=== PATIENT | female | born 1960 | race Caucasian/White ===

== ENCOUNTER 2017-02-22 14:41 | Observation (INO) ==
[2017-02-22] MEDS ORDERED: DiltiaZEM 25 MG/5 ML INJECTION IVP ONE ×2 (15:25→16:10)
[2017-02-22] MEDS ORDERED: NS 1,000 ML IV ONE (15:29)
--- NOTE | 2017-02-22 15:33 | Emergency Department Report ---
Cardiac General HPI - General Chief Complaint: Chest Pain Stated Complaint: irr heartbeat Time Seen by Provider: 02/22/17 15:14 Source: patient Mode of arrival: ambulatory Limitations: no limitations - History of Present Illness HPI narrative: Krystin is a 56 year old female who developed heart fluttering sensation about an hour prior to arrival while walking on the [place] [employer] to her office. Last evening she did also feel some strange sensation in her chest but denies it feeling like pain. Denies soa. No prior hx of documented dysrhythmias. Hx HTN. Occurred At: work Onset (ago): hour(s) (1) Activites at Onset: activity Nitro Today: no nitro taken today - Related Data Home Medications Medication Instructions Recorded Confirmed Bisoprolol Fumarate 5 mg PO DAILY #0 08/19/11 02/22/17 Estradiol [Vivelle-Dot] 1 patch TOP WEEKLY #24 08/22/14 02/22/17 Acetaminophen [Acetaminophen Extra 1,000 mg PO Q8H PRN 02/22/17 02/22/17 Strength] HydroCHLOROthiazide [Hydrodiuril] 25 mg PO WB 02/22/17 02/22/17 Ibuprofen [Motrin] 400 mg PO Q4H PRN 02/22/17 02/22/17 Allergies Allergy/AdvReac Type Severity Reaction Status Date / Time No Known Drug Allergies Allergy Unknown Verified 02/22/17 15:11 Review of Systems All systems: reviewed and negative except as stated Cardiovascular: Reports: palpitations. Denies: chest pain Respiratory: Denies: cough Gastrointestinal: Denies: abdominal pain, nausea, vomiting Psychiatric: Denies: anxiety PFSH Patient Stated Medical History Migraine Yes Hypertension Yes Gastroesophageal Reflux Yes Disease - Social History Smoking status: Never smoker Substance use type: does not use Current occupational status: employed Current occupation: [employer] Physical Exam - Limitations Limitations: no limitations - Head Head exam: atraumatic, normocephalic - Eye Eye exam: Present: normal appearance, PERRL - ENT ENT exam: Present: normal exam, normal oropharynx, mucous membranes moist - Neck Neck exam: Present: normal inspection, full ROM, trachea midline - Chest Chest inspection: Present: normal inspection, symmetric chest wall rise - Respiratory Respiratory exam: Present: normal lung sounds bilaterally, respiratory distress - Cardiovascular Cardiovascular exam: Present: tachycardia, irregular rhythm - Abdominal Exam Abdominal exam: Present: soft. Absent: distention, tenderness - Extremities Exam Extremities exam: Present: normal inspection, full ROM - Skin Skin exam: Present: warm, dry, intact - Neurological Exam Neurological exam: Present: alert, oriented X3 - Psychiatric Psychiatric exam: Present: normal affect, normal mood Course Course Narrative: Doreen Wesley JAC notified of patient for cardiology consultation - Consultations Consultation #1: Amy Time: 17:55 (in to see patient in ER) Vital Signs Temperature 98.4 F 02/22/17 14:45 Pulse Rate 115 H 02/22/17 14:45 Respiratory Rate 18 02/22/17 14:45 Blood Pressure 190/103 H 02/22/17 14:45 Pulse Oximetry 99 02/22/17 14:45 Temperature 98.4 F 02/22/17 14:45 Pulse Rate 105 H 02/22/17 17:30 Respiratory Rate 18 02/22/17 17:15 Blood Pressure 154/68 H 02/22/17 17:30 Pulse Oximetry 97 02/22/17 17:30 Cardiac General - MDM Narrative Medical decision making narrative: Adenosine 6 mg given in ED ordered by Amy with his presence at bedside. Underlying rhythm evaluated and seems to be sinus tachycardia with frequent PACs. Rate erratic and remains tachycardic after adenosine wore off. Admitting patient for antiarrhythmic therapy - Differential Diagnosis Differential diagnosis: Likely: sinus tachycardia (with freq PACs) - Lab Data Attestation: I reviewed the patient's lab results. Result diagrams: 02/22/17 15:41 02/22/17 15:41 Lab Results 02/22/17 02/22/17 Range/Units 15:41 15:41 WBC 9.0 (4.5-11.0) T/MM3 RBC 5.06 (4.00-5.20) M/MM3 Hgb 14.8 (12-16) GM/DL Hct 44.2 (36-46) % MCV 87.4 (80-100) UM3 MCH 29.2 (26-34) UUG MCHC 33.5 (31-37) GM/DL RDW Std Deviation 40.3 (36.9-50.2) FL Plt Count 356 (130-400) T/MM3 MPV 9.6 (9.4-12.4) UM3 Immature Gran % (Auto) 0.1 (0.0-0.5) % Neut % (Auto) 70.6 H (33-66) % Lymph % (Auto) 17.7 L (23-45) % [place] % (Auto) 7.9 (0-9.0) % Eos % (Auto) 3.1 (0-4) % Baso % (Auto) 0.6 (0-2) % Neut # 6.4 (1.8-7.7) T/MM3 Lymph # 1.6 (1-4.8) T/MM3 [place] # 0.7 (0-0.8) T/MM3 Eos # 0.3 (0-0.5) T/MM3 Baso # 0.1 (0-0.2) T/MM3 Abs Immat Gran (auto) 0.01 (0.00-0.03) T/MM3 Turbidity < 20 (0-20) Sodium 140 (134-144) MEQ/L Potassium 3.9 (3.6-5) MEQ/L Chloride 100 (98-107) MEQ/L Carbon Dioxide 29 (22-30) MEQ/L Anion Gap 11 (5-15) MEQ/L BUN 13.0 (7-17) MG/DL Creatinine 0.8 (0.7-1.2) MG/DL GFR Calculation 74 BUN/Creatinine Ratio 16 (6-26) RATIO Glucose 126 H (65-110) MG/DL Calculated Osmolality 271 (261-280) MOSM/KG Calcium 9.9 (8.4-10.2) MG/DL Magnesium 2.0 (1.6-2.3) MG/DL Icterus Index < 2 (0-7) Troponin I < 0.012 (0-0.12) ng/ml TSH 3.06 (0.47-4.68) MIU/L Specimen Hemolysis 90 H (0-25) Critical Care Time Critical Care Time: Yes Total Critical Care Time: 20 Attestation: Critical care time for evaluation on monitor with diltiazen administration and adenosine Disposition Clinical Impression: Tachycardia Disposition: 02 To [facility] [place] Acute Care Prescriptions: No Action Bisoprolol Fumarate 5 mg PO DAILY #0 Ibuprofen [Motrin] 400 mg PO Q4H PRN PRN Reason: Pain Estradiol [Vivelle-Dot] 1 patch TOP WEEKLY #24 Acetaminophen [Acetaminophen Extra Strength] 1,000 mg PO Q8H PRN PRN Reason: Pain HydroCHLOROthiazide [Hydrodiuril] 25 mg PO WB - Seen By: midlevel Addendum entered and electronically signed by Dory Milan APRN 02/22/17 18: 21:
[2017-02-22] MEDS: SALINE FLUSH 10ml SYRINGE IV PRN ×3 (15:55→18:00)
[2017-02-22] MEDS ORDERED: ADENOSINE 6mg/2ml INJECTION IVP ONE (17:54)
--- NOTE | 2017-02-22 18:22 | Cardiology History & Physical ---
History of Present Illness Chief complaint: irregular heart beat HPI: Krystin is a 56 year old female who is seen by Dr. Reyes in the ED this evening after she developed heart fluttering sensation about an hour prior to arrival to the ED today while walking on the [email or web address] [email or web address] to her office. Last evening she did also feel some strange sensation in her chest but denies it feeling like pain. Denies soa. No prior hx of documented dysrhythmias. Hx HTN. EKG demonstrates Sinus Tachycardia with frequent PVCs. On telemetry it is difficult to diferentiate between ST with PACs verses A Flutter. Adenosine 6mg IV was given by nursing staff to slow rhythm to confirm Sinus tachycardia with frequent PACs. Patient will be admitted to Dr. Reyes for observation and anti- arrhythmic therapy on Flecainide. Review of Systems - Constitutional Constitutional: Absent: chills, fever(s), headache(s) - EENMT Eyes: Absent: change in vision Balance: Absent: vertigo Mouth/Throat: Absent: sore throat - Cardiovascular Cardiovascular: Present: palpitations, syncope (near). Absent: chest pain, dyspnea on exertion, orthopnea Vascular: Absent: pedal edema - Respiratory Respiratory: Absent: cough, dyspnea - Gastrointestinal Gastrointestinal: Absent: constipation, diarrhea, nausea, vomiting - Genitourinary Genitourinary: Absent: dysuria - Neurological Neurological: Present: dizziness PFSH Patient Stated Medical History Migraine Yes Hypertension Yes Gastroesophageal Reflux Yes Disease - Social History Smoking status: Never smoker Household members: spouse Current occupational status: employed Current residence: Apartment/Private Home Medications Home Medications Medication Instructions Recorded Confirmed Type Estradiol [Vivelle-Dot] 1 patch TOP WEEKLY #24 08/22/14 02/22/17 History Acetaminophen [Acetaminophen Extra 1,000 mg PO Q8H PRN 02/22/17 02/22/17 History Strength] HydroCHLOROthiazide [Hydrodiuril] 25 mg PO WB 02/22/17 02/22/17 History Ibuprofen [Motrin] 400 mg PO Q4H PRN 02/22/17 02/22/17 History Allergies Allergy/AdvReac Type Severity Reaction Status Date / Time No Known Drug Allergies Allergy Unknown Verified 02/22/17 15:11 Exam Vital signs: Temperature 98.4 F 02/22/17 14:45 Pulse Rate 105 H 02/22/17 17:30 Respiratory Rate 18 02/22/17 17:15 Blood Pressure 154/68 H 02/22/17 17:30 Pulse Oximetry 97 02/22/17 17:30 Oxygen Delivery Method Room Air - Constitutional mild distress, cooperative - Routine Neck Exam Absent: JVD, carotid bruit - Routine Chest/Breast/Axilla Exam Chest wall: Absent: tenderness - Routine Respiratory Exam Present: rales (bibasilar). Absent: CTA bilaterally - Routine Cardiovascular Exam Present: no murmur, tachycardia, irregular rhythm. Absent: JVD - Routine Abdominal Exam Present: soft, normoactive bowel sounds - Routine Extremities Exam Present: no edema - Routine Skin Exam Present: intact - Routine Neurological Exam Present: alert, oriented X3 - Routine Psychiatric Exam Present: normal affect, normal thought process Results 02/23/17 04:42 02/23/17 04:42 Cardiac Enzymes 02/22/17 Range/Units 15:41 Troponin I < 0.012 (0-0.12) ng/ml CBC 02/22/17 Range/Units 15:41 WBC 9.0 (4.5-11.0) T/MM3 RBC 5.06 (4.00-5.20) M/MM3 Hgb 14.8 (12-16) GM/DL Hct 44.2 (36-46) % Plt Count 356 (130-400) T/MM3 Neut # 6.4 (1.8-7.7) T/MM3 Lymph # 1.6 (1-4.8) T/MM3 [place] # 0.7 (0-0.8) T/MM3 Eos # 0.3 (0-0.5) T/MM3 Baso # 0.1 (0-0.2) T/MM3 Comprehensive Metabolic Panel 02/22/17 Range/Units 15:41 Sodium 140 (134-144) MEQ/L Potassium 3.9 (3.6-5) MEQ/L Chloride 100 (98-107) MEQ/L Carbon Dioxide 29 (22-30) MEQ/L BUN 13.0 (7-17) MG/DL Creatinine 0.8 (0.7-1.2) MG/DL Glucose 126 H (65-110) MG/DL Calcium 9.9 (8.4-10.2) MG/DL Intake and Output 02/22/17 02/22/1717 06:59 14:59 22:59 Intake Total 1000 / 1000 Output Total 800 / 800 Balance 200 / 200 Intake: IV 1000 / 1000 Normal Saline 1,000 ml @ 1000 / 1000 999.9 mls/hr IV .Q1H ONE Rx#:[id number] Output: Urine 800 / 800 Other: Weight 172 lb 6.424 oz Patient Weight 02/23/17 06:59 Weight 172 lb 6.424 oz Laboratory Results - last 48 hr 02/22/17 02/22/17 15:41 15:41 WBC 9.0 RBC 5.06 Hgb 14.8 Hct 44.2 MCV 87.4 MCH 29.2 MCHC 33.5 RDW Std Deviation 40.3 Plt Count 356 MPV 9.6 Immature Gran % (Auto) 0.1 Neut % (Auto) 70.6 H Lymph % (Auto) 17.7 L [place] % (Auto) 7.9 Eos % (Auto) 3.1 Baso % (Auto) 0.6 Neut # 6.4 Lymph # 1.6 [place] # 0.7 Eos # 0.3 Baso # 0.1 Abs Immat Gran (auto) 0.01 Turbidity < 20 Sodium 140 Potassium 3.9 Chloride 100 Carbon Dioxide 29 Anion Gap 11 BUN 13.0 Creatinine 0.8 GFR Calculation 74 BUN/Creatinine Ratio 16 Glucose 126 H Calculated Osmolality 271 Calcium 9.9 Magnesium 2.0 Icterus Index < 2 Troponin I < 0.012 TSH 3.06 Specimen Hemolysis 90 H - Imaging and Cardiology EKG results: image reviewed Imaging & Cardiology Narrative: Date of Exam: 02/22/17 Ordering Provider: Doreen Olson APRN Type of Exam(s): XR chest 1V Reason for Exam(s): bibasilar rales Indication: bibasilar rales PROCEDURE: XR chest 1V: Encounter: Initial Comparison: None FINDINGS: The lungs are clear. There is no abnormal airspace opacity, pleural effusion or pneumothorax identified. The heart size, pulmonary vasculature and mediastinum are within normal limits. No significant skeletal abnormality is seen. IMPRESSION: No acute cardiopulmonary abnormality. EKG interpretations - Dysrhythmias Sinus rhythms and dysrhythmias: sinus tachycardia Supraventricular dysrhythmia: atrial premature complexes (frequent) Hospital Course This is a general summary of the patient's hospital course. For more details refer to the complete medical record. Time spent with patient: 25 - 35 minutes DVT Prophylaxis: Lovenox Assessment and Plan (1) Premature atrial complexes Status: Acute EKG Sinus tachycardia with premature atrial contractions. Electrolyes and TSH WNL. Start Flecainide 100mg now with 50mg bid. EKG in the am (2) Essential (primary) hypertension Status: Chronic Hold Bisoprolol. Start Metoprolol 50mg po BID (3) GERD (gastroesophageal reflux disease) Status: Chronic - Attestation Attestation Narrative: 03/01/17 11:49 Recommendation After examining the patient I agree with the above assessment. I am involved in the formulation of the patient's plan of care.
[2017-02-22] MEDS ORDERED: ACETAMINOPHEN 500 MG TABLET PO PRN (19:42)
[2017-02-22] MEDS ORDERED: ENOXAPARIN 40 MG/0.4 ML INJECTION SQ ONE (19:42)
[2017-02-22] MEDS ORDERED: ESTRADIOL PO SCH (19:42)
[2017-02-22] MEDS ORDERED: FLECAINIDE 100 MG TABLET PO ONE (19:42)
[2017-02-22 20:01] VITALS: BMI 27.8
[2017-02-23] MEDS ORDERED: FLECAINIDE 50 MG TABLET PO SCH (09:00)
--- NOTE | 2017-02-23 09:12 | XRay Report ---
Indication: bibasilar rales PROCEDURE: XR chest 1V: Encounter: Initial Comparison: None FINDINGS: The lungs are clear. There is no abnormal airspace opacity, pleural effusion or pneumothorax identified. The heart size, pulmonary vasculature and mediastinum are within normal limits. No significant skeletal abnormality is seen. IMPRESSION: No acute cardiopulmonary abnormality. .
[2017-02-23] MEDS: SALINE FLUSH 10ml SYRINGE IV PRN ×2 (10:41→17:33)
--- NOTE | 2017-02-23 11:35 | Discharge Summary ---
<Doreen Olson - Last Filed: 02/23/17 18:25> Discharge Information Date of admission: 02/22/17 18:15 Anticipated date of discharge: 02/23/17 Attending Physician: Haile Reyes MD Primary care physician: Melida Dela Cruz, DO - Discharge Diagnosis (1) Premature atrial complexes Status: Acute (2) Essential (primary) hypertension Status: Chronic (3) GERD (gastroesophageal reflux disease) Qualifiers: Esophagitis presence: without esophagitis Qualified Code(s): K21.9 - Gastro -esophageal reflux disease without esophagitis Status: Chronic - Laboratory Labs: 02/23/17 04:42 02/23/17 04:42 Laboratory Results - last 48 hr 02/22/17 02/22/17 02/23/17 15:41 15:41 04:42 WBC 9.0 7.6 RBC 5.06 4.57 Hgb 14.8 13.3 Hct 44.2 40.6 MCV 87.4 88.8 MCH 29.2 29.1 MCHC 33.5 32.8 RDW Std Deviation 40.3 41.4 Plt Count 356 333 MPV 9.6 9.7 Immature Gran % (Auto) 0.1 Neut % (Auto) 70.6 H Lymph % (Auto) 17.7 L [place] % (Auto) 7.9 Eos % (Auto) 3.1 Baso % (Auto) 0.6 Neut # 6.4 Lymph # 1.6 [place] # 0.7 Eos # 0.3 Baso # 0.1 Abs Immat Gran (auto) 0.01 Turbidity < 20 Sodium 140 Potassium 3.9 Chloride 100 Carbon Dioxide 29 Anion Gap 11 BUN 13.0 Creatinine 0.8 GFR Calculation 74 BUN/Creatinine Ratio 16 Glucose 126 H Calculated Osmolality 271 Calcium 9.9 Magnesium 2.0 Icterus Index < 2 Troponin I < 0.012 TSH 3.06 Specimen Hemolysis 90 H 02/23/17 04:42 WBC RBC Hgb Hct MCV MCH MCHC RDW Std Deviation Plt Count MPV Immature Gran % (Auto) Neut % (Auto) Lymph % (Auto) [place] % (Auto) Eos % (Auto) Baso % (Auto) Neut # Lymph # [place] # Eos # Baso # Abs Immat Gran (auto) Turbidity < 20 Sodium 140 Potassium 3.4 L Chloride 103 Carbon Dioxide 28 Anion Gap 9 BUN 11.0 Creatinine 0.7 GFR Calculation 86 BUN/Creatinine Ratio 16 Glucose 93 Calculated Osmolality 268 Calcium 8.8 D Magnesium 2.0 Icterus Index < 2 Troponin I TSH Specimen Hemolysis < 15 - Radiology Radiology: Date of Exam: 02/22/17 Ordering Provider: Doreen Olson APRN Type of Exam(s): XR chest 1V Reason for Exam(s): bibasilar rales Indication: bibasilar rales PROCEDURE: XR chest 1V: Encounter: Initial Comparison: None FINDINGS: The lungs are clear. There is no abnormal airspace opacity, pleural effusion or pneumothorax identified. The heart size, pulmonary vasculature and mediastinum are within normal limits. No significant skeletal abnormality is seen. IMPRESSION: No acute cardiopulmonary abnormality. History of Present Illness HPI: Krystin is a 56 year old female who is seen by Dr. Reyes in the ED this evening after she developed heart fluttering sensation about an hour prior to arrival to the ED today while walking on the [employer] to her office. Last evening she did also feel some strange sensation in her chest but denies it feeling like pain. Denies soa. No prior hx of documented dysrhythmias. Hx HTN. EKG demonstrates Sinus Tachycardia with frequent PACs. On telemetry it is difficult to differentiate between ST with PACs verses A Flutter. Adenosine 6mg IV was given by nursing staff to slow rhythm to confirm Sinus tachycardia with frequent PACs. Patient will be admitted to Dr. Reyes for observation and anti- arrhythmic therapy on Flecainide. 02/23/17 12:15 Hospital Course This is a general summary of the patient's hospital course. For more details refer to the complete medical record. Hospital course: EKG demonstrates Sinus Tachycardia with frequent PACs. On telemetry it is difficult to differentiate between ST with PACs verses A Flutter. Adenosine 6mg IV was given by nursing staff to slow rhythm to confirm Sinus tachycardia with frequent PACs. Patient will be admitted to Dr. Reyes for observation and anti- arrhythmic therapy on Flecainide. -Electrolyes and TSH WNL. Start Flecainide 100mg now with 50mg bid. EKG in the am -Hold Bisoprolol. Start Metoprolol 50mg po BID -Suboptimal BP control start 30mg Nifedipine daily. Instructed patient to take and record BP 2-3 x/week and bring to follow up appointment. Exam Vital signs: Temperature 97.6 F 02/23/17 07:49 Pulse Rate 70 02/23/17 08:00 Respiratory Rate 100 H 02/23/17 07:49 Blood Pressure 155/72 H 02/23/17 07:49 Pulse Oximetry 16 L 02/23/17 07:49 Oxygen Delivery Method Room Air - Constitutional no acute distress, well developed, cooperative - Routine Neck Exam Absent: JVD, carotid bruit - Routine Chest/Breast/Axilla Exam Chest wall: Absent: tenderness - Routine Respiratory Exam Present: CTA bilaterally. Absent: rales, wheezes - Routine Cardiovascular Exam Present: RRR, no murmur. Absent: JVD - Routine Abdominal Exam Present: soft, normoactive bowel sounds - Routine Extremities Exam Present: no edema - Routine Skin Exam Present: intact - Routine Neurological Exam Present: alert, oriented X3 - Routine Psychiatric Exam Present: normal affect, normal thought process Results 02/23/17 04:42 02/23/17 04:42 CBC 02/23/17 Range/Units 04:42 WBC 7.6 (4.5-11.0) T/MM3 RBC 4.57 (4.00-5.20) M/MM3 Hgb 13.3 (12-16) GM/DL Hct 40.6 (36-46) % Plt Count 333 (130-400) T/MM3 Comprehensive Metabolic Panel 02/23/17 Range/Units 04:42 Sodium 140 (134-144) MEQ/L Potassium 3.4 L (3.6-5) MEQ/L Chloride 103 (98-107) MEQ/L Carbon Dioxide 28 (22-30) MEQ/L BUN 11.0 (7-17) MG/DL Creatinine 0.7 (0.7-1.2) MG/DL Glucose 93 (65-110) MG/DL Calcium 8.8 D (8.4-10.2) MG/DL Intake and Output 02/22/17 02/23/17 02/23/17 22:59 06:59 14:59 Intake Total 120 / 1120 500 / 500 Output Total 300 / 300 500 / 500 Balance 120 / 320 200 / 200 -500 / -500 Intake: Oral 120 / 120 500 / 500 Output: Urine 300 / 300 500 / 500 Other: Weight 172 lb 6.424 oz - Imaging and Cardiology EKG results: image reviewed - EKG Interpretation EKG: sinus rhythm (QT/QTc 413/421) EKG shows: bradycardia Discharge Plan - Med Rec/Dispo Referrals/Follow Up: Haile Reyes MD [Physician] - 03/16/17 1:40 pm (follow up with Dr. Sheldon) [place] Instructions: Flecainide (By mouth) Additional Instructions: Take your BP 2-3 x a week and record it and bring it to your follow up appointment Prescriptions: New Flecainide [Tambocor] 50 mg PO BID #60 tablet Metoprolol Tartrate [Lopressor] 50 mg PO BIDWM #60 tablet NIFEdipine XL [Procardia Xl] 30 mg PO DAILY #30 tablet Continue Ibuprofen [Motrin] 400 mg PO Q4H PRN PRN Reason: Pain Estradiol [Vivelle-Dot] 1 patch TOP WEEKLY #24 Acetaminophen [Acetaminophen Extra Strength] 1,000 mg PO Q8H PRN PRN Reason: Pain HydroCHLOROthiazide [Hydrodiuril] 25 mg PO WB Discontinued Bisoprolol Fumarate 5 mg PO DAILY #0 - Disposition 01 Discharged Home, Self-Care <Haile Reyes - Last Filed: 03/01/17 11:42> Discharge Information Date of admission: 02/22/17 18:15 Attending Physician: Haile Reyes MD Primary care physician: Melida Dela Cruz, DO - Discharge Diagnosis (1) Premature atrial complexes Status: Acute (2) Essential (primary) hypertension Status: Chronic (3) GERD (gastroesophageal reflux disease) Qualifiers: Esophagitis presence: without esophagitis Qualified Code(s): K21.9 - Gastro -esophageal reflux disease without esophagitis Status: Chronic - Laboratory Labs: 02/23/17 04:42 02/23/17 04:42 Hospital Course This is a general summary of the patient's hospital course. For more details refer to the complete medical record. Exam Vital signs: Temperature 97.4 F 02/23/17 15:41 Pulse Rate 71 02/23/17 17:32 Respiratory Rate 18 02/23/17 15:41 Blood Pressure 203/84 H 02/23/17 17:32 Pulse Oximetry 100 02/23/17 15:41 Oxygen Delivery Method Room Air Results 02/23/17 04:42 02/23/17 04:42 Discharge Plan - Med Rec/Dispo - Attestation Attestation Narrative: 03/01/17 11:42 Recommendation After examining the patient I agree with the above assessment. I am involved in the formulation of the patient's plan of care.
[2017-02-23 15:45] VITALS: RESP 18; TEMP 97.4; O2SAT 100
[2017-02-23] MEDS ORDERED: HYDRALAZINE 20 MG/ML INJECTION IVP ONE (17:24)
[2017-02-23 17:33] VITALS: BP 203/84; PULSE 71
[2017-02-23] MEDS ORDERED: AMLODIPINE 5 MG TABLET PO SCH (18:00)
== END 2017-02-23 19:00 | disposition home or self-care (01) ==
LOC: ED 14:41 → SRG 14:41
PROVIDERS: ADMIT Internal Medicine Cardiovascular Disease; ATTEND Internal Medicine Cardiovascular Disease